=== PATIENT | female | born 1985 | race Caucasian/White ===

== ENCOUNTER → 2020-10-21 | Outpatient (CLI) | payer OTHER ==
[~2020-10-21] VITALS: Ht 167.6 cm; Wt 104.3 kg
[~2020-10-21] MED LIST: MORPHINE SULFATE 4 MG/ML DISP.SYRIN. IV ONE
--- NOTE | 2020-10-21 12:16 | RAD ---
EXAM: Nuclear hepatobiliary scan. HISTORY: Pain. TECHNIQUE: Following intravenous administration of 5.5 mCi Tc 99m Choletec, anterior images of the ab domen were obtained at five minute intervals through one hour. Delayed images were obtained following intravenous and demonstration of 4 mg morphine. FINDINGS: There is prompt radiotracer uptake by the liver. No focal defect is seen. There is normal e xcretion into the biliary tree and emptying of tracer into the small bowel. There is no gallbladder f illing within 60 minutes. There is gallbladder filling within 5 minutes following morphine administra tion on delayed images. IMPRESSION: Delayed gallbladder filling at approximately 70 minutes, immediately following administra tion of morphine. This can be seen with chronic cholecystitis. There is no evidence to suggest acute cholecystitis. There is no sonogram available for correlation at the time of dictation. Electronically signed by: Cesilia Alexander MD (10/21/2020 12:13 PM) [id number]
== END ==
LOC: NM 09:02
PROVIDERS: ATTEND Family Medicine Sports Medicine
DX: R10.31 Right lower quadrant pain (principal)
CPT/HCPCS: 78227; A9537; J2270